=== PATIENT | male | born 1975 ===

== ENCOUNTER 2018-01-18 05:14 | Day surgery (SDC) | payer OTHER ==
[2018-01-18] MEDS ORDERED: FENTANYL CITRATE INJ/PF 100 MCG/2 ML AMPUL ONE (06:42)
[2018-01-18] MEDS ORDERED: PROPOFOL INJ 200 MG/20 ML VIAL IV ONE (06:42)
[2018-01-18] MEDS ORDERED: MIDAZOLAM 2 MG/2 ML INJ ONE (06:42)
[2018-01-18] MEDS ORDERED: BUPIVACAINE HCL 0.5 % INJ/PF 30 ML SDV ONE (06:46)
[2018-01-18] MEDS ORDERED: LIDOCAINE 1% INJ-PF (10 MG/ML) 30 ML SDV ONE (06:46)
[2018-01-18] MEDS ORDERED: CEFAZOLIN 2 GM/D5W RTU 2 GM/50 ML RTUPB IV ONE (07:36)
[2018-01-18] MEDS ORDERED: MEPERIDINE HCL/PF INJ 25 MG/1 ML DISP.SYRIN IV PRN (08:20)
[2018-01-18] MEDS ORDERED: FENTANYL CITRATE INJ/PF 100 MCG/2 ML AMPUL IV PRN ×3 (08:20)
[2018-01-18] MEDS ORDERED: DIPHENHYDRAMINE HCL 50 MG/ML VIAL IV PRN (08:20)
[2018-01-18] MEDS ORDERED: PROMETHAZINE HCL INJ 25 MG/1 ML VIAL IV PRN (08:20)
[2018-01-18] MEDS ORDERED: OXYCODONE-ACETAMINOPHEN 5-325 MG TABLET PO PRN (08:35)
[2018-01-18] MEDS ORDERED: ONDANSETRON HCL INJ/PF 4 MG/2 ML SDV IV PRN (08:36)
[2018-01-18 09:58] VITALS: BP 131/89
--- NOTE | 2018-01-18 14:41 | OPERATIVE REPORT E ---
Operative Report NAME: JEANCARLOS RICHARDSON : 1975 AGE: 42Y DATE OF SURGERY: 01/18/2018 ROOM: PREOPERATIVE DIAGNOSIS: Right thumb soft tissue mass POSTOPERATIVE DIAGNOSIS: Right thumb soft tissue mass OPERATION: Right thumb excision soft tissue mass SURGEON: KHAI SIMMS M.D. ANESTHESIA: Local with sedation INDICATIONS FOR PROCEDURE: Patient is a 42-year-old [employer] with soft tissue mass on the ulnar aspect of the right thumb. The mass has increased in size. PROCEDURE: The patient was brought to the operating room. Ancef was administered and the arm was prepped with cholaprep in standard fashion. Anesthesia was performed by surgeon with a combination of 1% lidocaine and 0.25% marcaine. A lateral incision was made on the ulnar aspect of the thumb. Care was taken to protect the digital artery and nerve. The mass was bluntly dissected and removed. The mass was opened on the back table and demonstrated the consistency of an epidermal inclusion cyst. The mass was sent to pathology. The skin was reapproximated with nylon. Bulky sterile dressing applied. The patient tolerated the procedure well with no complications. He was brought to recovery room in good condition. DICTATING PHYSICIAN: KHAI SIMMS M.D. [id number] Y#: [id number] ID: [id number] JOB#: [id number] ACCT: [id number] cc:KHAI SIMMS M.D. > MTDD
== END 2018-01-18 09:55 | disposition home or self-care (01) ==
LOC: OROUT 05:14
PROVIDERS: ATTEND Orthopaedic Surgery
DX: D21.11 Benign neoplasm of connective and other soft tissue of right upper limb, including shoulder (principal); I10 Essential (primary) hypertension; Z79.899 Other long term (current) drug therapy
CPT/HCPCS: 88304 ×2; 26115; J2250; J3490 ×2; J3010; J2704; J0690; 400